=== PATIENT | female | born 1950 | race Hispanic/Latino ===

== ENCOUNTER 2018-04-27 08:43 | Outpatient (CLI) | payer MEDICARE | END 2018-04-27 08:44 | disposition home or self-care (01) | LOC: C.RADH 08:43 | DX: J44.9 Chronic obstructive pulmonary disease, unspecified (principal) ==

== ENCOUNTER 2018-04-29 08:57 | Outpatient (CLI) | payer MEDICARE | END 2018-04-29 08:58 | disposition home or self-care (01) | LOC: C.CARD 08:57 ==

== ENCOUNTER 2018-05-26 07:44 | Outpatient (CLI) | payer MEDICARE | END 2018-05-26 07:45 | disposition home or self-care (01) | LOC: C.CARD 07:44 | DX: R06.02 Shortness of breath (principal); R07.89 Other chest pain ==

== ENCOUNTER 2018-07-05 11:23 | Outpatient (CLI) | payer MEDICARE | END 2018-07-05 11:24 | disposition home or self-care (01) | LOC: C.PAT 11:23 | DX: R94.39 Abnormal result of other cardiovascular function study (principal); R06.02 Shortness of breath ==

== ENCOUNTER 2018-07-06 09:34 | Day surgery (SDC) | payer MEDICARE ==
[2018-07-05 07:49] VITALS: BMI 37.5
[2018-07-06] MEDS ORDERED: Verapamil 2 ML ONE (11:23)
[2018-07-06] MEDS ORDERED: Iodixanol 320 MG/ML 100 ML BOTTLE IV ONE (11:24)
[2018-07-06] MEDS ORDERED: Midazolam 2 MG/2 ML VIAL ONE (11:38)
--- NOTE | 2018-07-17 00:32 | CARDCATH ---
PROCEDURE DATE: 07/06/2018 PROCEDURES: 1. Left heart catheterization. 2. Coronary angiogram. PERFORMING PHYSICIAN: Endy Ramos MD CLINICAL INDICATIONS: 1. Chest pain. 2. Abnormal stress test. 3. Hypertension. 4. Hyperlipidemia. DESCRIPTION OF PROCEDURE: After informed consent, the patient was prepped and draped in the usual sterile fashion. Lidocaine 2% was given in the right wrist for local anesthesia. Using micropuncture technique, 6-Romanian sheath was introduced into right radial artery. A JR-4, 6-Romanian diagnostic catheter was inserted into the left ventricle across the aortic valve. LV end-diastolic pressure was measured. Contrast injected and LV angiogram was done. The catheter was pulled back across the aortic valve. Gradient across the aortic valve was measured. Then, the same catheter was engaged into right coronary artery. Contrast was injected and right coronary angiogram was done. Then, the catheter was exchanged to 5-Romanian [place] catheter. The catheter was engaged into the left main coronary artery. Contrast injected and left coronary angiogram was done. The patient tolerated the procedure well. Postprocedure, Terumo radial band was applied to right wrist with excellent hemostasis. Radiological supervision and radiological interpretation of the coronary imaging was done. FINDINGS: 1. Left main coronary artery is patent. 2. LAD and diagonal branches are patent. 3. Left circumflex is dominant. Obtuse marginal 1 artery has ostial 80% to 85% stenosis. Distal left circumflex is patent. 4. Right coronary artery is nondominant and patent. 5. LV ejection fraction is approximately 70%. No wall motion abnormalities noted. EDP is 14. No gradient across the aortic valve. IMPRESSION: 1. Single-vessel coronary artery disease as described above. 2. Normal left ventricular systolic function. PLAN: Recommend medical management for now. If the patient continues to have symptoms, we will consider intervening obtuse marginal artery. Endy Ramos MD
== END 2018-07-06 15:23 | disposition home or self-care (01) ==
LOC: C.CATHLAB 09:34
PROVIDERS: ATTEND Internal Medicine Cardiovascular Disease
DX: I25.10 Atherosclerotic heart disease of native coronary artery without angina pectoris (principal); J44.9 Chronic obstructive pulmonary disease, unspecified; I10 Essential (primary) hypertension; E78.5 Hyperlipidemia, unspecified
CPT/HCPCS: 93458; 99152; 99153; C1769; C1887; J1644; J2250; J3010; Q9967

== ENCOUNTER 2018-09-14 15:20 | Outpatient (CLI) | payer MEDICARE | END 2018-09-14 15:21 | disposition home or self-care (01) | LOC: C.RADIC 15:20 ==